=== PATIENT | female | born 1995 | race Caucasian/White ===

== ENCOUNTER 2018-11-01 16:44 | Emergency (ER) | payer MEDICAID ==
[2018-11-01 16:53] VITALS: BMI 26.4
[2018-11-01] MEDS ORDERED: Sodium Chloride 0.9% 1,000 ML IV ONE (16:53)
[2018-11-01 16:54] VITALS: RESP 22
[2018-11-01 17:18] LABS: BASO % 0.2 % (0.0-2.0); EOS % 0.1 % (0.0-4.0); HEMOGLOBIN 13.7 g/dL (11.0-16.0); LYMPH # 0.3 K/uL (1.0-4.3); LYMPH % 3.7 % (20.0-40.0); MEAN CELL VOLUME 89.2 fL (81.0-99.0); MEAN CORPUSCULAR HEMOGLOBIN 30.2 pg (27.0-31.0); MEAN CORPUSCULAR HGB CONC 33.9 g/dL (33.0-37.0); MEAN PLATELET VOLUME 8.1 fL (7.2-11.7); MONO # 0.2 K/uL (0.0-0.8); MONO % 2.5 % (0.0-10.0); NEUT # 8.8 K/uL (1.8-7.0); NEUT % 93.5 % (50.0-75.0); PLATELET COUNT 267 K/uL (130-400); RBC 4.55 Mil/uL (3.80-5.20); RED CELL DISTRIBUTION WIDTH 13.6 % (11.5-14.5); WHITE BLOOD COUNT 9.4 K/uL (4.8-10.8)
[2018-11-01 17:26] LABS: SQUAMOUS EPITHIAL 15 /hpf (0-5); URINE BILIRUBIN NEGATIVE (NEGATIVE); URINE BLOOD NEGATIVE (NEGATIVE); URINE CLARITY Hazy (Clear); URINE COLOR Yellow (YELLOW); URINE GLUCOSE (UA) NORMAL (Normal); URINE LEUKOCYTE ESTERASE 3+ Leu/uL (Negative); URINE PROTEIN 1+ mg/dL (NEGATIVE); URINE UROBILINOGEN NORMAL mg/dL (0.2-1.0)
[2018-11-01 17:27] LABS: URINE BACTERIA MOD (<OCC)
[2018-11-01 17:33] LABS: ALB/GLOB RATIO 1.5 (1.0-2.1); ALBUMIN 4.6 g/dL (3.5-5.0); ALT/SGPT 10 U/L (9-52); AST/SGOT 19 U/L (14-36); BLOOD UREA NITROGEN 10 mg/dL (7-17); CALCIUM 8.9 mg/dl (8.6-10.4); GFR NON-AFRICAN AMERICAN > 60; LIPASE 47 U/L (23-300)
--- NOTE | 2018-11-01 17:35 | C.PDOC ---
History Of Present Illness 23-year-old female presents to the emergency department status post eating [place] food yesterday. Patient reports three episodes of vomiting today but denies diarrhea, fever, chills, urinary symptoms, and sick contact. Time Seen by Provider: 11/01/18 16:50 Chief Complaint (Nursing): Abdominal Pain History Per: Patient History/Exam Limitations: no limitations Onset/Duration Of Symptoms: Days (1) Current Symptoms Are (Timing): Still Present Associated Symptoms: Vomiting, Urinary Symptoms. denies: Fever, Chills, Diarrhea Past Medical History Reviewed: Historical Data, Nursing Documentation, Vital Signs Vital Signs: Last Vital Signs Temp 99.6 F 11/01/18 16:48 Pulse 100 H 11/01/18 16:48 Resp 22 11/01/18 16:48 BP 100/61 11/01/18 16:48 Pulse Ox 99 11/01/18 16:48 - Medical History PMH: Asthma, Depression Denies: Chronic Kidney Disease - [facility] Procedures EPISIOTOMY (04/22/15) EXCISION OF LEFT OVARY, PERCUTANEOUS ENDOSCOPIC APPROACH (10/23/15) EXTRACTION OF PRODUCTS OF CONCEPTION, RETAINED, VIA OPENING (10/23/15) Family History: States: Unknown Family Hx - Social History Hx Tobacco Use: No Hx Alcohol Use: No Hx Substance Use: No - Immunization History Hx Tetanus Toxoid Vaccination: No Hx Influenza Vaccination: Yes (2014) Hx Pneumococcal Vaccination: No Review Of Systems Except As Marked, All Systems Reviewed And Found Negative. Gastrointestinal: Positive for: Vomiting Physical Exam - Physical Exam Appears: Non-toxic, No Acute Distress Skin: Normal Color, Warm, Dry Head: Atraumatic, Normacephalic Eye(s): bilateral: Normal Inspection, PERRL, EOMI Nose: Normal Oral Mucosa: Moist Neck: Normal, Supple Chest: Symmetrical, No Tenderness Cardiovascular: Rhythm Regular, No Murmur Respiratory: Normal Breath Sounds, No Rales, No Rhonchi, No Wheezing Gastrointestinal/Abdominal: Bowel Sounds (positive), Soft, Tenderness (tenderness to hypogastric area), No Guarding, No Rebound Neurological/Psych: Oriented x3, Normal Speech, Normal Cognition ED Course And Treatment - Laboratory Results Result Diagrams: 11/01/18 17:15 11/01/18 17:15 Lab Results: Urine Color Yellow (YELLOW) 11/01/18 17:15 Urine Clarity Hazy (Clear) 11/01/18 17:15 Urine pH 7.0 (5.0-8.0) 11/01/18 17:15 Ur Specific [place] 1.020 (1.003-1.030) 11/01/18 17:15 Urine Protein 1+ mg/dL (NEGATIVE) H 11/01/18 17:15 Urine Glucose (UA) Normal mg/dL (Normal) 11/01/18 17:15 Urine Ketones Negative mg/dL (NEGATIVE) 11/01/18 17:15 Urine Blood Negative (NEGATIVE) 11/01/18 17:15 Urine Nitrate Negative (NEGATIVE) 11/01/18 17:15 Urine Bilirubin Negative (NEGATIVE) 11/01/18 17:15 Urine Urobilinogen Normal mg/dL (0.2-1.0) 11/01/18 17:15 Ur Leukocyte Esterase 3+ Gilberto/uL (Negative) H 11/01/18 17:15 Urine WBC (Auto) 53 /hpf (0-5) H 11/01/18 17:15 Urine RBC (Auto) 4 /hpf (0-3) H 11/01/18 17:15 Ur Squamous Epith Cells 15 /hpf (0-5) H 11/01/18 17:15 Urine Bacteria Mod (<OCC) H 11/01/18 17:15 O2 Sat by Pulse Oximetry: 99 (RA) Pulse Ox Interpretation: Normal Medical Decision Making Medical Decision Making: Plan: CMP Lipase CBC Pepcid 20mg IVP NaCl IV Fluids Toradol 30mg IVP Zofran 4mg IVP Urine Culture POC Urine Urinalysis Assessment: Vomiting 19:30 - On reevaluation patient reports improvement to the symptoms, tolerating PO in the ED not actively vomiting stable for D/C home. Patient advised to follow up with PMD Disposition - Disposition Referrals: Amalia Claire MD [Medical Doctor] - Disposition: HOME/ ROUTINE Disposition Time: 19:26 Condition: STABLE Additional Instructions: follow up with your doctor within 2 days call to make an appointment take medications as needed return to ER if symptoms worsens or progress Prescriptions: Famotidine [Pepcid] 20 mg PO BID #20 tab Ondansetron ODT [Zofran ODT] 4 mg PO TID PRN #12 odt PRN Reason: Nausea/Vomiting Instructions: Acute Abdomen (Belly Pain), Adult (DC), Nausea and Vomiting, Adult (DC) Forms: [facility] ([place]), General Discharge Instructions - Clinical Impression Clinical Impression: Vomiting, Abdominal pain - Scribe Statement The provider has reviewed the documentation as recorded by the Scribe (Emmett Bethea) Provider Attestation: All medical record entries made by the Scribe were at my direction and pers onally dictated by me. I have reviewed the chart and agree that the record accurately reflects my personal performance of the history, physical exam, medical decision making, and the department course for this patient. I have also personally directed, reviewed, and agree with the discharge instructions and disposition.
[2018-11-01] MEDS ORDERED: Sodium Chloride 0.9% 1,000 ML ONE (17:44)
[2018-11-01 19:01] LABS: LYMPHOCYTE 2 % (20-40); MONOCYTE 1 % (0-10); NEUTROPHIL 97 % (50-75); PLATELET ESTIMATE NORMAL (NORMAL); TOTAL CELLS COUNTED 100
[2018-11-01 19:25] VITALS: BP 96/58; PULSE 77; TEMP 99.4
[2018-11-01 19:28] VITALS: O2SAT 99
== END 2018-11-01 19:36 | disposition home or self-care (01) ==
LOC: C.ER 16:44
DX: R11.10 Vomiting, unspecified (principal); R10.9 Unspecified abdominal pain
CPT/HCPCS: 80053; 81001; 81025; 83690; 85025; 87086; 96361; 96374; 96375; 99284; J1885; J2405; J7030